=== PATIENT | male | born 1990 | race Hispanic/Latino ===

== ENCOUNTER 2018-07-24 11:42 | Inpatient (IN) | payer SELFPAY ==
[2018-07-24 13:15] LABS: Absolute Lymphocytes (CBC) 1.9 K/uL (0.7-4.9); Absolute Monocytes 1.2 K/uL (0.1-1.3); Absolute Neutrophil 12.5 K/uL (1.8-8.0); Basophils % 0.4 % (0-1.3); Eosinophils % 1.3 % (0-4.4); Hematocrit 41.1 % (39.6-49.0); Lymphocytes % 11.8 % (15.3-44.8); MCH 30.3 pg (27.0-35.0); MCV 86.9 fL (80-100); MPV 8.9 fL (7.6-11.3); Monocytes % 7.7 % (3.3-12.3); RBC Red Blood Cell Count 4.73 M/uL (4.33-5.43)
[2018-07-24] MEDS ORDERED: NA CHLORIDE 0.9% 1,000 ML ONE (13:18)
[2018-07-24 13:37] LABS: ALT/SGPT 46 U/L (12-78); AST/SGOT 21 U/L (15-37); Albumin 3.7 g/dL (3.4-5.0); Alkaline Phosphatase 104 U/L (45-117); Amylase Level 31 U/L (25-115); BUN Blood Urea Nitrogen 9 mg/dL (7-18); Bicarbonate 28 mmol/L (21-32); Bilirubin Direct 0.1 mg/dL (0-0.2); Bilirubin Total 0.5 mg/dL (0.2-1.0); Glucose Level 95 mg/dL (74-106); Lipase 56 U/L (73-393); Potassium 3.8 mmol/L (3.5-5.1); Protein, Total 9.4 g/dL (6.4-8.2); Sodium Level 139 mmol/L (136-145)
--- NOTE | 2018-07-24 14:18 | RAD REPORT ---
EXAM DESCRIPTION: CT - Abdomen Pelvis W Contrast - 07/24/2018 1:53 pm CLINICAL HISTORY: Abdominal pain lower abdominal pain COMPARISON: 2014 TECHNIQUE: Computed axial tomography of the abdomen pelvis was obtained. 100 cc Isovue-300 was admin istered intravenously. Oral contrast was not requested which limits evaluation of bowel. All CT scans are performed using dose optimization technique as appropriate and may include automated exposure control or mA/KV adjustment according to patient size. FINDINGS: The liver has a diminished attenuation consistent with fatty infiltration. Spleen, pancreas, adrenal and kidneys appear unremarkable. An 11 centimeter segment of the sigmoid colon is narrowed. The ill-defined fluid is present within th e sigmoid mesocolon with increased density measuring 7 x 2 centimeters. Small amount of ascites is pr esent within the cul-de-sac. Pneumoperitoneum is not present. IMPRESSION: 11 centimeter area of narrowing involving the sigmoid colon may represent a marked colit is or diverticulitis. Neoplasm is another consideration but probably is less likely. Ill-defined flui d within the mesocolon which has increased density may represent blood. Pneumoperitoneum is not noted .
[2018-07-24] MEDS ORDERED: ONDANSETRON 4 MG/2 ML VIAL ONE (14:20)
[2018-07-24] MEDS ORDERED: MORPHINE 4 MG/ML SYR ONE ×2 (14:20→15:42)
--- NOTE | 2018-07-24 14:41 | ER ---
Nurse's Notes [facility] Name: Eric Greer Age: 28 yrs Sex: Male : 1990 Arrival Date: 07/24/2018 Time: 11:45 Bed 25 Private MD: None, None Diagnosis: Diverticulitis of intestine, part unspecified, without perforation or abscess without bleeding Presentation: 07/24 11:59 Presenting complaint: Patient states: Lower quadrant pain for 1 week, "feels like my aj diverticulitis". Denies blood in stool. Transition of care: patient was not received from another setting of care. Onset of symptoms was July 17, 2018. Risk Assessment: Do you want to hurt yourself or someone else? Patient reports no desire to harm self or others. Initial Sepsis Screen: Does the patient meet any 2 criteria? No. Patient's initial sepsis screen is negative. Does the patient have a suspected source of infection? No. Patient's initial sepsis screen is negative. Care prior to arrival: None. 11:59 Method Of Arrival: Ambulatory 11:59 Acuity: ANNAMARIE 3 aj Triage Assessment: 12:02 General: Appears in no apparent distress. comfortable, Behavior is calm, cooperative, aj appropriate for age. Pain: Complains of pain in left lower quadrant. Neuro: Level of Consciousness is awake, alert, obeys commands, Oriented to person, place, time, situation, Appropriate for age. Respiratory: Airway is patent Respiratory effort is even, unlabored, Respiratory pattern is regular, symmetrical. GI: Abdomen is flat, non-distended, Reports lower abdominal pain. Derm: Skin is intact, is healthy with good turgor, Skin is pink, warm \\T\\ dry. normal. Historical: - Allergies: 12:02 No Known Allergies; aj - Home Meds: 12:02 None [Active]; aj - PMHx: 12:02 Diverticulitis; aj - PSHx: 12:02 None; aj - Immunization history:: Adult Immunizations up to date. - Social history:: Smoking status: Patient/guardian denies using tobacco. - Ebola Screening: : Patient negative for fever greater than or equal to 101.5 degrees Fahrenheit, and additional compatible Ebola Virus Disease symptoms Patient denies exposure to infectious person Patient denies travel to an Ebola-affected area in the 21 days before illness onset No symptoms or risks identified at this time. Screenin:09 Abuse screen: Denies threats or abuse. Nutritional screening: No deficits noted. la1 Tuberculosis screening: No symptoms or risk factors identified. Fall Risk None identified. Assessment: 13:07 General: Appears in no apparent distress. Behavior is calm, cooperative. Pain: la1 Complains of pain in left lower quadrant. Neuro: Level of Consciousness is awake, alert, obeys commands, Oriented to person, place, time, situation. Cardiovascular: Capillary refill < 3 seconds Patient's skin is warm and dry. Respiratory: Airway is patent Respiratory effort is even, unlabored, Respiratory pattern is regular, symmetrical. GI: Abdomen is round non-distended, Bowel sounds present X 4 quads. Abd is soft X 4 quads Abdomen is tender to palpation in left upper quadrant and left lower quadrant Reports constipation, diarrhea, nausea, vomiting, since last week. : No signs and/or symptoms were reported regarding the genitourinary system. 14:21 Reassessment: Patient appears in no apparent distress at this time. No changes from la1 previously documented assessment. Patient and/or family updated on plan of care and expected duration. Pain level reassessed. Vital Signs: 12:02 BP 135 / 85; Pulse 72; Resp 16; Temp 97.0; Pulse Ox 100% on R/A; Weight 77.11 kg; aj Height 5 ft. 11 in. (180.34 cm); 14:25 BP 136 / 90 RA Supine (auto/reg); Pulse 72; Resp 19 S; Temp 97.7(O); Pulse Ox 99% on jp3 R/A; Pain 4/10; 14:54 BP 130 / 95; Pulse 64; Resp 16; Pulse Ox 98% on R/A; la1 15:32 BP 135 / 80 LA Sitting (auto/reg); Pulse 78; Resp 19 S; Pulse Ox 98% on R/A; Pain 4/10; jp3 12:02 Body Mass Index 23.71 (77.11 kg, 180.34 cm) aj ED Course: 11:45 Patient arrived in ED. sb2 11:45 None, None is Private Physician. sb2 12:02 Triage completed. aj 12:02 Arm band placed on left wrist. Patient placed in waiting room, Patient notified of wait aj time. 12:51 Graciela Doss FNP-C is [facility]. kb 12:51 Jairon Scott MD is Attending Physician. kb 12:55 Stevie Carr RN is Primary Nurse. la1 13:00 Initial lab(s) drawn, by me, sent to lab. Inserted saline lock: 22 gauge in left jp3 antecubital area, using aseptic technique. Blood collected. 13:08 Amylase, Serum Sent. jp3 13:08 Basic Metabolic Panel Sent. jp3 13:08 CBC with Diff Sent. jp3 13:08 Hepatic Function Sent. jp3 13:08 Lipase Sent. jp3 13:09 Bed in low position. Call light in reach. la1 13:[address] mw3 13:53 CT Abd/Pelvis - W/Contrast In Process Unspecified. EDMS 14:29 Warm blanket given. Pillow given. jp3 14:40 Estefani Soliman MD is Hospitalizing Provider. kb 16:41 No provider procedures requiring assistance completed. Patient admitted, IV remains in la1 place. Administered Medications: 13:17 Drug: NS 0.9% 1000 ml Route: IV; Rate: 1000 ml; Site: left antecubital; la1 14:55 Follow up: IV Status: Completed infusion la1 14:20 Drug: morphine 4 mg Route: IVP; Site: left antecubital; la1 14:55 Follow up: Response: No adverse reaction; Pain is decreased la1 14:20 Drug: Zofran 4 mg Route: IVP; Site: left antecubital; la1 14:55 Follow up: Response: No adverse reaction la1 14:53 Drug: Flagyl 500 mg Volume: 100 ml; Route: IVPB; Rate: 200 ml/hr; Infused Over: 30 la1 mins; Site: left antecubital; 15:53 Follow up: IV Status: Completed infusion la1 15:10 Drug: Cipro 400 mg Volume: 200 ml; Route: IVPB; Infused Over: 60 mins; Site: left la1 antecubital; 15:54 Follow up: IV Status: Infusion continued upon admission la1 15:54 Drug: morphine 4 mg Route: IVP; Site: left antecubital; la1 15:55 Follow up: Response: No adverse reaction; Pain is decreased la1 Outcome: 14:40 Decision to Hospitalize by Provider. kb 16:41 Admitted to Med/surg accompanied by tech, via wheelchair. la1 16:41 Condition: stable 16:41 Instructed on the need for admit. 16:42 Patient left the ED. la1 Signatures: Dispatcher [employer] EDGraciela Rhodes, KOBE OYSTER PICKER-Zaynab Hernandez RN Stevie Chavis RN RN la1 Tiff Lanier 2 Charisma Eason mw3 Efrain Trinidad jp3
--- NOTE | 2018-07-24 14:41 | EDPHYS ---
Physician Documentation [facility] Name: Eric Greer Age: 28 yrs Sex: Male : 1990 Arrival Date: 07/24/2018 Time: 11:45 Bed 25 Private MD: None, None ED Physician Jairon Scott HPI: 07/24 14:37 This 28 yrs old Male presents to ER via Ambulatory with complaints of kb Abdominal Pain. 14:37 The patient presents with abdominal pain in the left upper quadrant, in the left lower kb quadrant. Onset: The symptoms/episode began/occurred 1 week(s) ago. The symptoms do not radiate. Associated signs and symptoms: Pertinent positives: constipation. The symptoms are described as constant. Modifying factors: The symptoms are alleviated by nothing, the symptoms are aggravated by nothing. Severity of pain: At its worst the pain was moderate in the emergency department the pain is unchanged. The patient has experienced a previous episode. The patient has not recently seen a physician. Historical: - Allergies: 12:02 No Known Allergies; aj - Home Meds: 12:02 None [Active]; aj - PMHx: 12:02 Diverticulitis; aj - PSHx: 12:02 None; aj - Immunization history:: Adult Immunizations up to date. - Social history:: Smoking status: Patient/guardian denies using tobacco. - Ebola Screening: : Patient negative for fever greater than or equal to 101.5 degrees Fahrenheit, and additional compatible Ebola Virus Disease symptoms Patient denies exposure to infectious person Patient denies travel to an Ebola-affected area in the 21 days before illness onset No symptoms or risks identified at this time. ROS: 14:35 Constitutional: Negative for fever, chills, and weight loss, Cardiovascular: Negative kb for chest pain, palpitations, and edema, Respiratory: Negative for shortness of breath, cough, wheezing, and pleuritic chest pain, Back: Negative for injury and pain, : Negative for injury, bleeding, discharge, and swelling, MS/Extremity: Negative for injury and deformity, Skin: Negative for injury, rash, and discoloration, Neuro: Negative for headache, weakness, numbness, tingling, and seizure. 14:35 Abdomen/GI: Positive for abdominal pain, constipation, Negative for nausea, vomiting, and diarrhea. Exam: 14:34 Constitutional: This is a well developed, well nourished patient who is awake, alert, kb and in no acute distress. Head/Face: Normocephalic, atraumatic. Chest/axilla: Normal chest wall appearance and motion. Nontender with no deformity. No lesions are appreciated. Cardiovascular: Regular rate and rhythm with a normal S1 and S2. No gallops, murmurs, or rubs. Normal PMI, no JVD. No pulse deficits. Respiratory: Lungs have equal breath sounds bilaterally, clear to auscultation and percussion. No rales, rhonchi or wheezes noted. No increased work of breathing, no retractions or nasal flaring. Skin: Warm, dry with normal turgor. Normal color with no rashes, no lesions, and no evidence of cellulitis. MS/ Extremity: Pulses equal, no cyanosis. Neurovascular intact. Full, normal range of motion. Neuro: Awake and alert, GCS 15, oriented to person, place, time, and situation. Cranial nerves II-XII grossly intact. Motor strength 5/5 in all extremities. Sensory grossly intact. Cerebellar exam normal. Normal gait. 14:34 Abdomen/GI: Inspection: abdomen appears normal, Bowel sounds: normal, in all quadrants, Palpation: soft, in all quadrants, nontender, in the right upper quadrant and right lower quadrant, mild abdominal tenderness, in the left upper quadrant, moderate abdominal tenderness, in the left lower quadrant. Vital Signs: 12:02 BP 135 / 85; Pulse 72; Resp 16; Temp 97.0; Pulse Ox 100% on R/A; Weight 77.11 kg; aj Height 5 ft. 11 in. (180.34 cm); 14:25 BP 136 / 90 RA Supine (auto/reg); Pulse 72; Resp 19 S; Temp 97.7(O); Pulse Ox 99% on jp3 R/A; Pain 4/10; 14:54 BP 130 / 95; Pulse 64; Resp 16; Pulse Ox 98% on R/A; la1 15:32 BP 135 / 80 LA Sitting (auto/reg); Pulse 78; Resp 19 S; Pulse Ox 98% on R/A; Pain 4/10; jp3 12:02 Body Mass Index 23.71 (77.11 kg, 180.34 cm) aj MDM: 12:52 Patient medically screened. kb 14:37 Data reviewed: vital signs, nurses notes. Data interpreted: Pulse oximetry: on room air kb is 99 %. Interpretation: normal. 14:39 Counseling: I had a detailed discussion with the patient and/or guardian regarding: the kb historical points, exam findings, and any diagnostic results supporting the discharge/admit diagnosis, lab results, radiology results, the need for further work-up and treatment in the hospital. Physician consultation: Estefani Soliman MD was contacted at 14:39, regarding admission, to the medical/surgical unit. patient's condition, and will see patient in ED, shortly. 07/24 12:52 Order name: Amylase, Serum; Complete Time: 13:42 kb 07/24 12:52 Order name: Basic Metabolic Panel; Complete Time: 13:42 kb 07/24 12:52 Order name: CBC with Diff; Complete Time: 13:23 kb 07/24 12:52 Order name: Hepatic Function; Complete Time: 13:42 kb 07/24 12:52 Order name: Lipase; Complete Time: 13:42 kb 07/24 13:08 Order name: CT Abd/Pelvis - W/Contrast; Complete Time: 14:19 kb 07/24 12:52 Order name: IV Saline Lock; Complete Time: 13:08 kb 07/24 15:30 Order name: [facility] EDMS 07/24 12:52 Order name: Labs collected and sent; Complete Time: 13:08 kb Administered Medications: 13:17 Drug: NS 0.9% 1000 ml Route: IV; Rate: 1000 ml; Site: left antecubital; la1 14:55 Follow up: IV Status: Completed infusion la1 14:20 Drug: morphine 4 mg Route: IVP; Site: left antecubital; la1 14:55 Follow up: Response: No adverse reaction; Pain is decreased la1 14:20 Drug: Zofran 4 mg Route: IVP; Site: left antecubital; la1 14:55 Follow up: Response: No adverse reaction la1 14:53 Drug: Flagyl 500 mg Volume: 100 ml; Route: IVPB; Rate: 200 ml/hr; Infused Over: 30 la1 mins; Site: left antecubital; 15:53 Follow up: IV Status: Completed infusion la1 15:10 Drug: Cipro 400 mg Volume: 200 ml; Route: IVPB; Infused Over: 60 mins; Site: left la1 antecubital; 15:54 Follow up: IV Status: Infusion continued upon admission la1 15:54 Drug: morphine 4 mg Route: IVP; Site: left antecubital; la1 15:55 Follow up: Response: No adverse reaction; Pain is decreased la1 Disposition: 18:16 Co-signature as Attending Physician, Jairon Scott MD I agree with the assessment and kdr plan of care. Disposition: 07/24/18 14:40 Hospitalization ordered by Estefani Soliman for Inpatient Admission. Preliminary diagnosis is Diverticulitis of intestine, part unspecified, without perforation or abscess without bleeding. - Bed requested for Telemetry/MedSurg (Inpatient). - Status is Inpatient Admission. la1 - Condition is Stable. - Problem is new. - Symptoms are unchanged. UTI on Admission? No Signatures: Dispatcher [employer] EDMS Graciela Doss, HAO-[employer] ENGINEER-Harmanb Zaynab Acevedo RN Jairon Dubon MD MD [facility] Stevie Carr RN RN [facility] Nicky Gunter Corrections: (The following items were deleted from the chart) 15:42 14:40 Hospitalization Ordered by Estefani Soliman MD for Inpatient Admission. Preliminary eb diagnosis is Diverticulitis of intestine, part unspecified, without perforation or abscess without bleeding. Bed requested for Telemetry/MedSurg (Inpatient). Status is Inpatient Admission. Condition is Stable. Problem is new. Symptoms are unchanged. UTI on Admission? No. kb 16:42 15:42 07/24/2018 14:40 Hospitalization Ordered by Estefani Soliman MD for Inpatient la1 Admission. Preliminary diagnosis is Diverticulitis of intestine, part unspecified, without perforation or abscess without bleeding. Bed requested for Telemetry/MedSurg (Inpatient). Status is Inpatient Admission. Condition is Stable. Problem is new. Symptoms are unchanged. UTI on Admission? No. eb
[2018-07-24] MEDS ORDERED: METRONIDAZOLE 500mg IVPB 500 MG/100 ML BAG IV ONE (14:54)
[2018-07-24] MEDS ORDERED: CIPROFLOXACIN 400mg IV 400 MG/200 ML BAG IV ONE (14:54)
[2018-07-24] MEDS ORDERED: ACETAMINOPHEN 500 MG TAB PO PRN (15:26)
[2018-07-24] MEDS ORDERED: ONDANSETRON 4 MG/2 ML VIAL IV PRN (15:26)
[2018-07-24] MEDS: METRONIDAZOLE 500mg IVPB 500 MG/100 ML BAG IV SCH (17:00)
--- NOTE | 2018-07-24 17:07 | P.HP ---
Certification for Inpatient Patient admitted to: Observation With expected LOS: <2 Midnights Patient will require the following post-hospital care: None Practitioner: I am a practitioner with admitting privileges, knowledge of patient current condition, hospital course, and medical plan of care. Services: Services provided to patient in accordance with Admission requirements found in Title 42 Section 412.3 of the Code of Federal Regulations Patient History Date of Service: 07/24/18 Reason for admission: Abdominal pain History of Present Illness: 28-year-old male with significant past medical history of recurrent diverticulitis who presented to the ED complaining of having some abdominal pain that has been going on for about 1 week. Patient states that his abdominal pain has been getting worse and thus decided to come to the ER. Patient stated that he felt like his diverticulitis was acting up and needed to get IV antibiotics. Patient has been nauseous as well. Denies having any fever chills, vomiting chest pain or shortness of breath at this time. -in the ER patient was found to have elevated white count along with CT which was consistent with 11 cm diverticulitis and thus was admitted for further care. Allergies No Known Drug Allergies Allergy (Unverified 03/03/15 01:45) Unknown - Past Medical/Surgical History Has patient received pneumonia vaccine in the past: No Diabetic: No - Family History Mother -: Hypertension Notes: Hydrocephalus- 2017 Father -: Other (see notes) Notes: diverticulitis. Hernia - Social History Smoking Status: Never smoker Alcohol use: Yes CD- Drugs: No Caffeine use: Yes Place of Residence: Home Review of Systems 10-point ROS is otherwise unremarkable Physical Examination - Vital Signs Temperature: 97.7 F Blood Pressure: 135/80 Pulse: 78 Respirations: 19 - Physical Exam General: Alert, In no apparent distress HEENT: Atraumatic, PERRLA, Mucous membr. moist/pink, EOMI, Sclerae nonicteric Neck: Supple, 2+ carotid pulse no bruit, No LAD, Without JVD or thyroid abnormality Respiratory: Clear to auscultation bilaterally, Normal air movement Cardiovascular: Regular rate/rhythm, Normal S1 S2 Gastrointestinal: Normal bowel sounds, Tenderness (Left upper and lower quadrant tenderness noted), Rebound Musculoskeletal: No tenderness Integumentary: No rashes Neurological: Normal gait, Normal speech, Normal strength at 5/5 x4 extr, Normal tone, Normal affect Lymphatics: No axilla or inguinal lymphadenopathy - Studies Laboratory Data (last 24 hrs) 07/24/18 13:00: WBC 15.9 H, Hgb 14.3, Hct 41.1, Plt Count 394 07/24/18 13:00: Sodium 139, Potassium 3.8, BUN 9, Creatinine 0.90, Glucose 95, Total Bilirubin 0.5, AST 21, ALT 46, Alkaline Phosphatase 104, Amylase 31, Lipase 56 L Assessment and Plan - Problems (Diagnosis) (1) Diverticulitis Current Visit: Yes Status: Acute Plan: Acute abdominal pain with CT with diverticulitis -NPO at this time. IV fluids. -IV Cipro and Flagyl -patient with recurrent diverticulitis. -If no improvement will get surgery consult at this time. -if there is improvement patient can be discharged home in 24-48 hr and have followup appointment with GI outpatient in 6 weeks for a followup colonoscopy - Plan Patient will be admitted to medical-surgical floor for IV antibiotics and IV fluids at this time. Will keep him NPO. If there is resolution of his symptoms and anticipate discharge in 24-48 hr. However patient does not have any resolution of his symptoms due to it being recurrent diverticulitis surgical consultation may be considered at that time. Discharge Plan: Home Plan to discharge in: 48 Hours - Advance Directives Does patient have a Living Will: No Does patient have a Durable POA for Healthcare: No - Code Status/Comfort Care Code Status Assessed: Yes Critical Care: No
[2018-07-24] MEDS: NA CHLORIDE 0.9% 1,000 ML IV SCH ×2 (18:02→21:01)
[2018-07-24 18:56] LABS: Urine Appearance CLEAR; Urine Bilirubin NEGATIVE (NEG); Urine Blood NEGATIVE (NEG); Urine Color YELLOW; Urine Glucose NEGATIVE (NEG); Urine Protein NEGATIVE (NEG); Urine Specific Gravity >=1.030 (1.005-1.030); Urine Urobilinogen 0.2 mg/dL (0.2-1.0); Urine pH 6.5 (5.0-7.0)
[2018-07-24 19:04] LABS: Urine Microscopic Reflex NO UMIC
[2018-07-24] MEDS: CIPROFLOXACIN 400mg IV 400 MG/200 ML BAG IV SCH ×2 (21:00→22:23)
[2018-07-24] MEDS: KETOROLAC 30 MG/ML INJ IV PRN (21:02)
[2018-07-24] MEDS ORDERED: MORPHINE 2 MG/ML SYR IV ONE (23:31)
[2018-07-25] MEDS: METRONIDAZOLE 500mg IVPB 500 MG/100 ML BAG IV SCH ×3 (00:14→16:21)
[2018-07-25] MEDS: KETOROLAC 30 MG/ML INJ IV PRN ×2 (05:01→11:16)
[2018-07-25 06:11] LABS: Absolute Lymphocytes (CBC) 1.1 K/uL (0.7-4.9); Absolute Monocytes 1.3 K/uL (0.1-1.3); Absolute Neutrophil 12.8 K/uL (1.8-8.0); Basophils % 0.2 % (0-1.3); Eosinophils % 1.5 % (0-4.4); Hematocrit 35.6 % (39.6-49.0); Lymphocytes % 7.3 % (15.3-44.8); MCH 30.3 pg (27.0-35.0); MCV 87.5 fL (80-100); MPV 9.3 fL (7.6-11.3); Monocytes % 8.4 % (3.3-12.3); RBC Red Blood Cell Count 4.07 M/uL (4.33-5.43)
[2018-07-25 06:24] LABS: ALT/SGPT 34 U/L (12-78); AST/SGOT 13 U/L (15-37); Albumin 2.9 g/dL (3.4-5.0); Alkaline Phosphatase 78 U/L (45-117); BUN Blood Urea Nitrogen 5 mg/dL (7-18); Bicarbonate 23 mmol/L (21-32); Bilirubin Total 0.5 mg/dL (0.2-1.0); Glucose Level 97 mg/dL (74-106); Phosphorus 3.5 mg/dL (2.5-4.9); Potassium 3.6 mmol/L (3.5-5.1); Protein, Total 7.4 g/dL (6.4-8.2); Sodium Level 139 mmol/L (136-145)
[2018-07-25] MEDS ORDERED: POTASSIUM CL SA 10 MEQ TAB PO ONE (06:31)
[2018-07-25] MEDS: CIPROFLOXACIN 400mg IV 400 MG/200 ML BAG IV SCH ×2 (09:02→20:17)
[2018-07-25] MEDS: MORPHINE 4 MG/ML SYR IV PRN ×2 (12:38→16:17)
--- NOTE | 2018-07-25 13:50 | P.PN ---
Subjective Date of Service: 07/25/18 Chief Complaint: Abdominal pain still ahs significant lower abd pain, and some nausea. requiring iv pain meds Physical Examination - Vital Signs Temperature: 97 F Blood Pressure: 101/56 Pulse: 69 Respirations: 18 Pulse Ox (%): 97 - Physical Exam General: Alert, In no apparent distress HEENT: Atraumatic, PERRLA, EOMI Neck: Supple, JVD not distended Respiratory: Clear to auscultation bilaterally, Normal air movement Cardiovascular: Regular rate/rhythm, Normal S1 S2 Gastrointestinal: Normal bowel sounds, Tenderness Musculoskeletal: No tenderness Integumentary: No rashes Neurological: Normal speech, Normal tone, Normal affect Lymphatics: No axilla or inguinal lymphadenopathy - Studies Medications List Reviewed: Yes Assessment And Plan - Current Problems (Diagnosis) (1) Diverticulitis Current Visit: Yes Status: Acute - Plan --Clear liquid diet --IVF --IV Cipro and Flagyl --Moprphine IV --May repeat CT scan if not improvong tomorrow
[2018-07-25] MEDS: NA CHLORIDE 0.9% 1,000 ML IV SCH ×2 (16:13→22:00)
[2018-07-25] MEDS: ONDANSETRON 4 MG/2 ML VIAL IV PRN (20:20)
[2018-07-25] MEDS: PROMETHAZINE 25 MG/ML VIAL IV PRN (21:17)
[2018-07-26] MEDS: ONDANSETRON 4 MG/2 ML VIAL IV PRN
[2018-07-26] MEDS: METRONIDAZOLE 500mg IVPB 500 MG/100 ML BAG IV SCH ×2 (00:01→09:14)
[2018-07-26] MEDS: NA CHLORIDE 0.9% 1,000 ML IV SCH ×3 (03:47→17:49)
[2018-07-26] MEDS: PROMETHAZINE 25 MG/ML VIAL IV PRN ×2 (03:48→14:01)
[2018-07-26] MEDS: KETOROLAC 30 MG/ML INJ IV PRN ×2 (06:18)
[2018-07-26 06:56] LABS: ALT/SGPT 29 U/L (12-78); AST/SGOT 13 U/L (15-37); Albumin 2.7 g/dL (3.4-5.0); Alkaline Phosphatase 76 U/L (45-117); BUN Blood Urea Nitrogen 4 mg/dL (7-18); Bicarbonate 24 mmol/L (21-32); Bilirubin Total 0.4 mg/dL (0.2-1.0); Glucose Level 107 mg/dL (74-106); Phosphorus 3.5 mg/dL (2.5-4.9); Potassium 3.7 mmol/L (3.5-5.1); Protein, Total 7.3 g/dL (6.4-8.2); Sodium Level 139 mmol/L (136-145)
[2018-07-26 07:06] LABS: Absolute Lymphocytes (CBC) 1.2 K/uL (0.7-4.9); Absolute Monocytes 0.8 K/uL (0.1-1.3); Absolute Neutrophil 11.2 K/uL (1.8-8.0); Basophils % 0.2 % (0-1.3); Eosinophils % 0.2 % (0-4.4); Hematocrit 37.8 % (39.6-49.0); Lymphocytes % 9.2 % (15.3-44.8); MCH 30.2 pg (27.0-35.0); MCV 87.1 fL (80-100); MPV 9.6 fL (7.6-11.3); Monocytes % 6.3 % (3.3-12.3); RBC Red Blood Cell Count 4.34 M/uL (4.33-5.43)
[2018-07-26] MEDS ORDERED: POTASSIUM CL SA 10 MEQ TAB PO ONE (09:00)
[2018-07-26] MEDS: CIPROFLOXACIN 400mg IV 400 MG/200 ML BAG IV SCH (09:14)
[2018-07-26] MEDS: metroNIDAZOLE 500 MG TABLET PO SCH ×2 (12:48→17:31)
[2018-07-26] MEDS ORDERED: levoFLOXacin 500 MG TAB PO SCH (15:00)
[2018-07-26] MEDS ORDERED: PROMETHAZINE 25 MG/ML VIAL IV PRN ×2 (16:52→17:01)
--- NOTE | 2018-07-26 19:00 | P.PN ---
Subjective Date of Service: 07/26/18 Chief Complaint: Abdominal pain doing better less pain Physical Examination - Vital Signs Temperature: 97.9 F Blood Pressure: 120/60 Pulse: 80 Respirations: 18 Pulse Ox (%): 98 - Physical Exam General: Alert, In no apparent distress HEENT: Atraumatic, PERRLA, EOMI Neck: Supple, JVD not distended Respiratory: Clear to auscultation bilaterally, Normal air movement Cardiovascular: Regular rate/rhythm, Normal S1 S2 Gastrointestinal: Normal bowel sounds, No tenderness Musculoskeletal: No tenderness Integumentary: No rashes Neurological: Normal speech, Normal tone, Normal affect Lymphatics: No axilla or inguinal lymphadenopathy - Studies Laboratory Data (last 24 hrs) 07/26/18 05:28: Sodium 139, Potassium 3.7, BUN 4 L, Creatinine 0.70, Glucose 107 H, Phosphorus 3.5, Magnesium 2.0, Total Bilirubin 0.4, AST 13 L, ALT 29, Alkaline Phosphatase 76 07/26/18 05:28: WBC 13.4 H, Hgb 13.1 L, Hct 37.8 L, Plt Count 386 Medications List Reviewed: Yes Assessment And Plan - Current Problems (Diagnosis) (1) Diverticulitis Current Visit: Yes Status: Acute - Plan --full liquid diet --IVF --PO Cipro and Flagyl --Moprphine IV
[2018-07-27] MEDS: NA CHLORIDE 0.9% 1,000 ML IV SCH (00:14)
[2018-07-27 04:11] LABS: Absolute Lymphocytes (CBC) 1.2 K/uL (0.7-4.9); Absolute Neutrophil 11.4 K/uL (1.8-8.0); Basophils % 0.4 % (0-1.3); Eosinophils % 0.5 % (0-4.4); Hematocrit 36.2 % (39.6-49.0); Lymphocytes % 8.7 % (15.3-44.8); MCV 87.3 fL (80-100); Monocytes % 7.1 % (3.3-12.3); RBC Red Blood Cell Count 4.15 M/uL (4.33-5.43)
[2018-07-27 05:00] LABS: ALT/SGPT 25 U/L (12-78); AST/SGOT 12 U/L (15-37); Albumin 2.6 g/dL (3.4-5.0); Alkaline Phosphatase 66 U/L (45-117); BUN Blood Urea Nitrogen 3 mg/dL (7-18); Bicarbonate 23 mmol/L (21-32); Bilirubin Total 0.3 mg/dL (0.2-1.0); Glucose Level 99 mg/dL (74-106); Magnesium 1.7 mg/dL (1.8-2.4); Phosphorus 2.7 mg/dL (2.5-4.9); Potassium 3.8 mmol/L (3.5-5.1); Protein, Total 6.8 g/dL (6.4-8.2); Sodium Level 140 mmol/L (136-145)
[2018-07-27] MEDS ORDERED: METRONIDAZOLE 500mg IVPB 500 MG/100 ML BAG IV SCH (06:00)
[2018-07-27] MEDS ORDERED: MAGNESIUM SULFATE 1 gm IVPB 1 GM/100 ML BAG IV ONE (08:00)
[2018-07-27] MEDS ORDERED: KCL 20 MEQ/100 mL IVPB 20 MEQ/100 ML BAG IV SCH (09:00)
[2018-07-27] MEDS ORDERED: Levofloxacin500mg IV 500 MG/100 ML BAG IV SCH (09:00)
[2018-07-27] MEDS: metroNIDAZOLE 500 MG TABLET PO SCH ×4 (11:47→23:32)
--- NOTE | 2018-07-27 17:48 | P.PN ---
Subjective Date of Service: 07/27/18 Chief Complaint: Abdominal pain doing much better today less pain Physical Examination - Vital Signs Temperature: 97.5 F Blood Pressure: 101/57 Pulse: 71 Respirations: 18 Pulse Ox (%): 97 - Physical Exam General: Alert, In no apparent distress HEENT: Atraumatic, PERRLA, EOMI Neck: Supple, JVD not distended Respiratory: Clear to auscultation bilaterally, Normal air movement Cardiovascular: Regular rate/rhythm, Normal S1 S2 Gastrointestinal: Normal bowel sounds, No tenderness Musculoskeletal: No tenderness Integumentary: No rashes Neurological: Normal speech, Normal tone, Normal affect Lymphatics: No axilla or inguinal lymphadenopathy - Studies Medications List Reviewed: Yes Assessment And Plan - Current Problems (Diagnosis) (1) Diverticulitis Onset Date: 07/27/18 Current Visit: Yes Status: Acute - Plan --Advance diet --IVF --PO Cipro and Flagyl --DC home tomorrow if tolerates meds and diet
[2018-07-28 04:31] LABS: Absolute Lymphocytes (CBC) 2.2 K/uL (0.7-4.9); Absolute Monocytes 0.7 K/uL (0.1-1.3); Absolute Neutrophil 6.5 K/uL (1.8-8.0); Basophils % 0.5 % (0-1.3); Hematocrit 38.3 % (39.6-49.0); Lymphocytes % 22.3 % (15.3-44.8); MCH 30.3 pg (27.0-35.0); MCV 86.6 fL (80-100); MPV 8.6 fL (7.6-11.3); Monocytes % 7.4 % (3.3-12.3); RBC Red Blood Cell Count 4.43 M/uL (4.33-5.43)
[2018-07-28 04:48] LABS: ALT/SGPT 26 U/L (12-78); AST/SGOT 21 U/L (15-37); Albumin 2.7 g/dL (3.4-5.0); Alkaline Phosphatase 64 U/L (45-117); BUN Blood Urea Nitrogen 4 mg/dL (7-18); Bicarbonate 26 mmol/L (21-32); Bilirubin Total 0.2 mg/dL (0.2-1.0); Glucose Level 94 mg/dL (74-106); Potassium 3.4 mmol/L (3.5-5.1); Protein, Total 6.9 g/dL (6.4-8.2); Sodium Level 142 mmol/L (136-145)
[2018-07-28] MEDS ORDERED: POTASSIUM 25 MEQ EFFERV TAB PO ONE (05:41)
[2018-07-28 05:42] LABS: Magnesium 1.8 mg/dL (1.8-2.4)
[2018-07-28] MEDS ORDERED: MAGNESIUM SULFATE 1 gm IVPB 1 GM/100 ML BAG IV ONE (05:52)
[2018-07-28] MEDS: metroNIDAZOLE 500 MG TABLET PO SCH ×2 (06:36→12:00)
[2018-07-28] MEDS ORDERED: levoFLOXacin 500 MG TAB PO SCH (09:00)
--- NOTE | 2018-07-28 13:45 | P.DS ---
Admission Date: 07/26/18 Discharge Date: 07/28/18 Disposition: ROUTINE DISCHARGE Discharge Condition: GOOD Reason for Admission: Abdominal pain - Problems (1) Diverticulitis Onset Date: 07/27/18 Status: Acute Brief History of Present Illness: 28-year-old male with significant past medical history of recurrent diverticulitis who presented to the ED complaining of having some abdominal pain that has been going on for about 1 week. Patient states that his abdominal pain has been getting worse and thus decided to come to the ER. Patient stated that he felt like his diverticulitis was acting up and needed to get IV antibiotics. Patient has been nauseous as well. Denies having any fever chills, vomiting chest pain or shortness of breath at this time. -in the ER patient was found to have elevated white count along with CT which was consistent with 11 cm diverticulitis and thus was admitted for further care. Hospital Course: Overall during the hospital stay patient remained stable The patient was initially admitted to the hospital for diverticulitis. Was found to have 11 cm diverticulitis on the CT scan. Was started with NPO diet and IV fluids and pain management. Patient had marked resolution of his symptoms and then was advanced to a full diet here in the hospital. Patient then was switched over to oral medication. C. diff culture was negative. Upon complete resolution of his symptoms. Patient was then discharged home under stable condition. Patient was asked to follow up with GI doctor outpatient in 6 weeks to get a colonoscopy done. Patient demonstrated understanding and was encouraged to eat a high-fiber diet. Vital Signs/Physical Exam: Temp Pulse Resp BP Pulse Ox 97.5 F 77 18 118/65 97 07/28/18 08:00 07/28/18 08:00 07/28/18 08:00 07/28/18 08:00 07/28/18 08:00 General: Alert, In no apparent distress HEENT: Atraumatic, PERRLA, EOMI Neck: Supple, JVD not distended Respiratory: Clear to auscultation bilaterally, Normal air movement Cardiovascular: Regular rate/rhythm, Normal S1 S2 Gastrointestinal: Normal bowel sounds, No tenderness Musculoskeletal: No tenderness Integumentary: No rashes Neurological: Normal speech, Normal tone, Normal affect Lymphatics: No axilla or inguinal lymphadenopathy Laboratory Data at Discharge: WBC 9.8 K/uL (4.3-10.9) D 07/28/18 04:18 Hgb 13.4 g/dL (13.6-17.9) L 07/28/18 04:18 Hct 38.3 % (39.6-49.0) L 07/28/18 04:18 Plt Count 421 K/uL (152-406) H 07/28/18 04:18 Sodium 142 mmol/L (136-145) 07/28/18 04:18 Potassium 3.4 mmol/L (3.5-5.1) L 07/28/18 04:18 BUN 4 mg/dL (7-18) L 07/28/18 04:18 Creatinine 0.70 mg/dL (0.55-1.3) 07/28/18 04:18 Glucose 94 mg/dL (74-106) 07/28/18 04:18 Phosphorus 2.7 mg/dL (2.5-4.9) 07/27/18 03:40 Magnesium 1.8 mg/dL (1.8-2.4) 07/28/18 04:18 Total Bilirubin 0.2 mg/dL (0.2-1.0) 07/28/18 04:18 AST 21 U/L (15-37) 07/28/18 04:18 ALT 26 U/L (12-78) 07/28/18 04:18 Alkaline Phosphatase 64 U/L (45-117) 07/28/18 04:18 Amylase 31 U/L (25-115) 07/24/18 13:00 Lipase 56 U/L (73-393) L 07/24/18 13:00 Home Medications: Ciprofloxacin HCl [Cipro 500 MG Tablet] 500 mg PO DAILY 10 Days #10 tab metroNIDAZOLE [Flagyl] 500 mg PO Q8H #30 tablet 07/28/18 New Medications: Ciprofloxacin HCl [Cipro 500 MG Tablet] 500 mg PO DAILY 10 Days #10 tab metroNIDAZOLE [Flagyl] 500 mg PO Q8H #30 tablet Patient Discharge Instructions: Please F.u with PCP and GI in 1 to 2 days post discharge. New medication. Ciprofloxacin 500mg Daily for 10 day s. Flagyl 500mg q8h for 10 days Diet: Regular Activity: Ad homero Followup: Randy Bernal MD [ACTIVE - CAN ADMIT] - (call to schedule appointment)
== END 2018-07-28 12:17 | disposition home or self-care (01) | DRG 392 ==
LOC: ER 11:42 → ERHOLD 15:27 → 4TH 16:18 → OBSVTOIN 07-26 13:20
PROVIDERS: ADMIT Family Medicine; ATTEND Family Medicine
DX: K57.92 Diverticulitis of intestine, part unspecified, without perforation or abscess without bleeding (principal)
CPT/HCPCS: 36415; 74177; 80048; 80053; 80076; 81003; 82150; 83690; 83735; 84100; 85025; 96361; 96365; 96375; 99285; G0378; J0744; J2270; J2405; J2550; J3475; J7030; Q9967

== ENCOUNTER 2020-08-02 22:07 | Emergency (ER) | payer SELFPAY ==
[2020-08-02 23:23] LABS: Absolute Lymphocytes (CBC) 1.1 K/uL (0.7-4.9); Basophils % 0.4 % (0-1.3); Hematocrit 43.6 % (39.6-49.0); Lymphocytes % 10.9 % (15.3-44.8); MPV 9.1 fL (7.6-11.3); RBC Red Blood Cell Count 4.99 M/uL (4.33-5.43)
[2020-08-02 23:36] LABS: ALT/SGPT 67 U/L (12-78); AST/SGOT 21 U/L (15-37); Albumin 4.2 g/dL (3.4-5.0); Alkaline Phosphatase 75 U/L (45-117); BUN Blood Urea Nitrogen 7 mg/dL (7-18); Bicarbonate 23 mmol/L (21-32); Bilirubin Direct 0.2 mg/dL (0-0.2); Bilirubin Total 0.8 mg/dL (0.2-1.0); Glucose Level 124 mg/dL (74-106); Lipase 48 U/L (73-393); Potassium 4.2 mmol/L (3.5-5.1); Protein, Total 8.6 g/dL (6.4-8.2); Sodium Level 139 mmol/L (136-145)
[2020-08-02] MEDS ORDERED: MORPHINE 4 MG/ML SYR ONE (23:55)
[2020-08-02] MEDS ORDERED: ONDANSETRON 4 MG/2 ML VIAL ONE (23:55)
--- NOTE | 2020-08-03 01:00 | EDPHYS ---
Physician Documentation [facility] Name: Eric Greer Age: 30 yrs Sex: Male : 1990 Arrival Date: 08/02/2020 Time: 22:09 Bed 5 Private MD: ED Physician Alex Brcue HPI: 08/03 01:54 This 30 yrs old Male presents to ER via Ambulatory with complaints of tw4 Abdominal Pain, Constipation. 01:54 The patient presents with abdominal pain that is diffuse. Onset: The symptoms/episode tw4 began/occurred today. The symptoms do not radiate. Associated signs and symptoms: none. The symptoms are described as crampy, dull. Modifying factors: The symptoms are alleviated by nothing, the symptoms are aggravated by nothing. The patient has not experienced similar symptoms in the past. Historical: - Allergies: 08/02 22:25 No Known Allergies; bb - Home Meds: 22:25 None [Active]; bb - PMHx: 22:25 Diverticulitis; bb - PSHx: 22:25 None; bb - Immunization history:: Adult Immunizations up to date. - Social history:: Smoking status: Patient/guardian denies using tobacco, but has a distant history of tobacco abuse, Patient uses alcohol, occasionally. Patient/guardian denies using street drugs. ROS: 08/03 01:54 Constitutional: Negative for fever, chills, and weight loss, Eyes: Negative for injury, tw4 pain, redness, and discharge, Cardiovascular: Negative for chest pain, palpitations, and edema, Respiratory: Negative for shortness of breath, cough, wheezing, and pleuritic chest pain, Back: Negative for injury and pain, MS/Extremity: Negative for injury and deformity, Skin: Negative for injury, rash, and discoloration. Abdomen/GI: Positive for abdominal pain, Negative for nausea and vomiting, nausea, vomiting, and diarrhea, nausea, vomiting, constipation. Exam: 01:54 Constitutional: This is a well developed, well nourished patient who is awake, alert, tw4 and in no acute distress. Head/Face: Normocephalic, atraumatic. Chest/axilla: Normal chest wall appearance and motion. Nontender with no deformity. No lesions are appreciated. Cardiovascular: Regular rate and rhythm with a normal S1 and S2. No gallops, murmurs, or rubs. Normal PMI, no JVD. No pulse deficits. Respiratory: Lungs have equal breath sounds bilaterally, clear to auscultation and percussion. No rales, rhonchi or wheezes noted. No increased work of breathing, no retractions or nasal flaring. MS/ Extremity: Pulses equal, no cyanosis. Neurovascular intact. Full, normal range of motion. Neuro: Awake and alert, GCS 15, oriented to person, place, time, and situation. Cranial nerves II-XII grossly intact. Motor strength 5/5 in all extremities. Sensory grossly intact. Cerebellar exam normal. Normal gait. 01:54 Abdomen/GI: Inspection: abdomen appears normal, Bowel sounds: normal, Palpation: moderate abdominal tenderness. Vital Signs: 08/02 22:23 BP 138 / 103; Pulse 102; Resp 16 S; Temp 98.7(O); Pulse Ox 98% on R/A; Weight 72.57 kg bb (R); Height 5 ft. 11 in. (180.34 cm) (R); Pain 10/10; 23:14 BP 134 / 93; Pulse 95; Resp 17; Pulse Ox 99% ; rr5 08/03 00:30 BP 124 / 77; Pulse 85; Resp 17; Pulse Ox 99% ; rr5 01:20 BP 120 / 85; Pulse 90; Resp 16; Pulse Ox 99% ; Pain 5/10; rr5 08/02 22:23 Body Mass Index 22.32 (72.57 kg, 180.34 cm) bb MDM: 08/02 23:17 Patient medically screened. tw4 08/03 01:56 Differential diagnosis: Cholelithiasis, diverticulitis, GI Bleed, pancreatitis, Peptic tw4 Ulcer Disease, Perf. Duodenal Ulcer, Perf. Gastric Ulcer. Data reviewed: vital signs, nurses notes. Data interpreted: Pulse oximetry: Interpretation: normal. Counseling: I had a detailed discussion with the patient and/or guardian regarding: the historical points, exam findings, and any diagnostic results supporting the discharge/admit diagnosis. Medication response: Zofran relieved the patient's nausea. Response to treatment: the patient's symptoms have mildly improved after treatment, and as a result, I will discharge patient. Special discussion: Based on the patient's Hx, exam, and Dx evaluation, there is no indication for emergent surgery or inpatient Tx. It is understood by the patient/guardian that if the Sx's persist or worsen they need to return immediately for re-evaluation. I discussed with the patient/guardian in detail that at this point there is no indication for admission to the hospital. It is understood, however, that if the symptoms persist or worsen the patient needs to return immediately for re-evaluation. 08/02 23:07 Order name: Basic Metabolic Panel; Complete Time: 23:36 [facility] 08/02 23:36 Interpretation: Normal except: GLUC 124. 08/02 23:07 Order name: CBC with Diff; Complete Time: 23:36 [facility] 08/02 23:37 Interpretation: Normal except: LYM% 10.9; RAGHU% 83.1; NEUT A 8.7. [facility] 08/02 22:45 Order name: Abdomen 1 View (KUB) XRAY [facility] 08/02 23:07 Order name: Hepatic Function; Complete Time: 23:36 [facility] 08/02 23:36 Interpretation: Normal except: TP 8.6; GLOB 4.4; A/G 1.0. 08/02 23:07 Order name: Lipase; Complete Time: 23:36 [facility] 08/02 23:37 Interpretation: Normal except: LIP 48. 08/02 23:39 Order name: CT Abd/Pelvis - IV Contrast Only 08/02 23:07 Order name: IV Saline Lock; Complete Time: 23:13 [facility] 08/02 23:07 Order name: Labs collected and sent; Complete Time: 23:14 rr5 Administered Medications: 08/02 23:47 Drug: Zofran (Ondansetron) 4 mg Route: IVP; Site: left antecubital; rr5 08/03 00:30 Follow up: Response: No adverse reaction rr5 08/02 23:49 Drug: morphine 4 mg {Note: rass 0.} Route: IVP; Site: left antecubital; rr5 08/03 00:30 Follow up: Response: No adverse reaction; RASS: Alert and Calm (0) rr5 01:00 Drug: Cipro 500 mg Route: PO; rr5 01:22 Follow up: Response: No adverse reaction rr5 01:00 Drug: Flagyl 500 mg Route: PO; rr5 01:22 Follow up: Response: No adverse reaction rr5 Disposition: 08/03/20 00:59 Discharged to Home. Impression: Diverticular disease of large intestine without perforation or abscess. - Condition is Stable. - Discharge Instructions: Diverticulitis, [id number]. - Prescriptions for Cipro 500 mg Oral Tablet - take 1 tablet by ORAL route every 12 hours for 10 days; 20 tablet. Flagyl 500 mg Oral Tablet - take 1 tablet by ORAL route every 6 hours for 10 days; 40 tablet. Ibuprofen 800 mg Oral Tablet - take 1 tablet by ORAL route every 12 hours As needed take with food; 20 tablet. - Medication Reconciliation Form, Thank You Letter, Antibiotic Education, Prescription Opioid Use, Work release form form. - Follow up: Private Physician; When: Upon discharge from the Emergency Department; Reason: Recheck today's complaints, Continuance of care, Re-evaluation by your physician. - Problem is new. - Symptoms have improved. Signatures: Dispatcher [employer] EDKristi Cruz RN RN Alex Huertas MD MD tw4 Jovan Orellana RN RN rr5 Corrections: (The following items were deleted from the chart) 01: 00:59 08/03/2020 00:59 Discharged to Home. Impression: Diverticular disease of large rr5 intestine without perforation or abscess. Condition is Stable. Forms are Medication Reconciliation Form, Thank You Letter, Antibiotic Education, Prescription Opioid Use. Follow up: Private Physician; When: Upon discharge from the Emergency Department; Reason: Recheck today's complaints, Continuance of care, Re-evaluation by your physician. Problem is new. Symptoms have improved. tw4
--- NOTE | 2020-08-03 01:00 | ER ---
Nurse's Notes [facility] Name: Eric Greer Age: 30 yrs Sex: Male : 1990 Arrival Date: 08/02/2020 Time: 22:09 Bed 5 Private MD: Diagnosis: Diverticular disease of large intestine without perforation or abscess Presentation: 08/02 22:23 Chief complaint: Patient states: he is having diffuse abdominal pain x 3 days has bb vomited several times and had one episode of diarrhea earlier today. Coronavirus screen: At this time, the client does not indicate any symptoms associated with coronavirus-19. Ebola Screen: No symptoms or risks identified at this time. Initial Sepsis Screen: Does the patient meet any 2 criteria? No. Patient's initial sepsis screen is negative. Does the patient have a suspected source of infection? No. Patient's initial sepsis screen is negative. Risk Assessment: Do you want to hurt yourself or someone else? Patient reports no desire to harm self or others. Onset of symptoms was July 30, 2020. 22:23 Method Of Arrival: Ambulatory bb 22:23 Acuity: ANNAMARIE 3 bb Triage Assessment: 22:25 General: Appears in no apparent distress. Behavior is calm, cooperative. Pain: bb Complains of pain in abdomen Pain currently is 10 out of 10 on a pain scale. GI: Reports lower abdominal pain, upper abdominal pain, diarrhea, vomiting. Historical: - Allergies: 22:25 No Known Allergies; bb - Home Meds: 22:25 None [Active]; bb - PMHx: 22:25 Diverticulitis; bb - PSHx: 22:25 None; bb - Immunization history:: Adult Immunizations up to date. - Social history:: Smoking status: Patient/guardian denies using tobacco, but has a distant history of tobacco abuse, Patient uses alcohol, occasionally. Patient/guardian denies using street drugs. Screenin:14 Abuse screen: Denies threats or abuse. Denies injuries from another. Nutritional rr5 screening: No deficits noted. Tuberculosis screening: No symptoms or risk factors identified. Fall Risk IV access (20 points). Total Cole Fall Scale indicates No Risk (0-24 pts). Assessment: 22:50 General: Appears in no apparent distress. uncomfortable, Behavior is calm, cooperative, rr5 appropriate for age. 22:50 Pain: Complains of pain in abdomen Pain currently is 7 out of 10 on a pain scale. rr5 Quality of pain is described as aching, Pain began gradually, 2-3 days ago. Is intermittent. Neuro: Level of Consciousness is awake, alert, obeys commands, Oriented to person, place, time, situation. Cardiovascular: Capillary refill < 3 seconds Patient's skin is warm and dry. Respiratory: Airway is patent Respiratory effort is even, unlabored, Respiratory pattern is regular, symmetrical. GI: Abdomen is round non-distended, Bowel sounds present X 4 quads. Abd is soft and non tender Patient currently denies abdominal pain, diarrhea, nausea, vomiting. : No signs and/or symptoms were reported regarding the genitourinary system. EENT: No signs and/or symptoms were reported regarding the EENT system. Derm: Skin is intact, is healthy with good turgor, Skin temperature is warm. Musculoskeletal: Circulation, motion, and sensation intact. Capillary refill < 3 seconds. 23:28 Reassessment: Patient appears in no apparent distress at this time. Patient is alert, rr5 oriented x 3, equal unlabored respirations, skin warm/dry/pink. came back from ay. 08/03 00:15 Reassessment: Patient appears in no apparent distress at this time. awaiting for CT rr5 result Patient states symptoms have improved. 01:19 Reassessment: Patient appears in no apparent distress at this time. Patient is alert, rr5 oriented x 3, equal unlabored respirations, skin warm/dry/pink. discharge instruction given and explained without complaints made. Vital Signs: 08/02 22:23 BP 138 / 103; Pulse 102; Resp 16 S; Temp 98.7(O); Pulse Ox 98% on R/A; Weight 72.57 kg bb (R); Height 5 ft. 11 in. (180.34 cm) (R); Pain 10/10; 23:14 BP 134 / 93; Pulse 95; Resp 17; Pulse Ox 99% ; rr5 08/03 00:30 BP 124 / 77; Pulse 85; Resp 17; Pulse Ox 99% ; rr5 01:20 BP 120 / 85; Pulse 90; Resp 16; Pulse Ox 99% ; Pain 5/10; rr5 08/02 22:23 Body Mass Index 22.32 (72.57 kg, 180.34 cm) ED Course: 08/02 22:09 Patient arrived in ED. cl3 22:24 Triage completed. bb 22:25 Arm band placed on Patient placed in waiting room, Patient notified of wait time. bb 22:44 Jovan Orellana, RN is Primary Nurse. rr5 22:44 Alex Bruce MD is Attending Physician. tw4 23:14 Patient has correct armband on for positive identification. Bed in low position. Call rr5 light in reach. Pulse ox on. NIBP on. 23:14 Inserted saline lock: 20 gauge in left antecubital area, using aseptic technique. Blood rr5 collected. 23:30 Abdomen 1 View (KUB) XRAY In Process Unspecified. EDMS 08/03 00:13 CT Abd/Pelvis - IV Contrast Only In Process Unspecified. EDMS 01:21 No provider procedures requiring assistance completed. IV discontinued, intact, rr5 bleeding controlled, No redness/swelling at site. Pressure dressing applied. Administered Medications: 08/02 23:47 Drug: Zofran (Ondansetron) 4 mg Route: IVP; Site: left antecubital; rr5 08/03 00:30 Follow up: Response: No adverse reaction rr5 08/02 23:49 Drug: morphine 4 mg {Note: rass 0.} Route: IVP; Site: left antecubital; rr5 08/03 00:30 Follow up: Response: No adverse reaction; RASS: Alert and Calm (0) rr5 01:00 Drug: Cipro 500 mg Route: PO; rr5 01:22 Follow up: Response: No adverse reaction rr5 01:00 Drug: Flagyl 500 mg Route: PO; rr5 01:22 Follow up: Response: No adverse reaction rr5 Outcome: 00:59 Discharge ordered by . tw4 01:21 Discharged to home ambulatory. rr5 01:21 Condition: stable 01:21 Discharge instructions given to patient, Instructed on discharge instructions, follow up and referral plans. medication usage, Demonstrated understanding of instructions, follow-up care, medications, Prescriptions given X 3. 01:22 Patient left the ED. rr5 Signatures: Dispatcher [employer] EDKS Kristi Zimmerman RN RN Alex Huertas MD MD tw Jovan Orellana RN RN rr5 Tomasz Jones cl3
[2020-08-03] MEDS ORDERED: CIPROFLOXACIN HCL 500 MG TAB ONE (01:25)
[2020-08-03] MEDS ORDERED: metroNIDAZOLE 500 MG TABLET ONE (01:25)
[2020-08-03 01:41] VITALS: TEMP 98.7
[2020-08-03 01:42] VITALS: O2SAT 99
[2020-08-03 01:45] VITALS: BP 120/85
--- NOTE | 2020-08-03 08:48 | RAD REPORT ---
EXAM DESCRIPTION: RAD - Abdomen 1 View (KUB) - 08/02/2020 11:30 pm CLINICAL HISTORY: ABD PAIN Pain COMPARISON: Abdomen Pelvis W Contrast dated 08/02/2020 FINDINGS: Diffuse distention of the colon with gas is present. No pneumatosis coli seen. No suspicio us calcifications. No significant bony findings. IMPRESSION: Diffuse distention of the colon is seen with gas noted.
--- NOTE | 2020-08-03 11:57 | RAD REPORT ---
EXAM DESCRIPTION: Abdomen Pelvis W Contrast EXAM DESCRIPTION: CT ABDOMEN AND PELVIS WITH CONTRAST CLINICAL HISTORY: Diffuse abdominal pain COMPARISON: None Available. TECHNIQUE: CT of the abdomen and pelvis performed following IV administration of iodinated contras t.. FINDINGS: Lung Bases: Minimal bibasilar dependent atelectasis. Bones: No destructive bone lesions identified. Abdomen: Liver: The liver has normal size and decreased density. No intrahepatic biliary dilatation. Gallbladder: No calcified gallstones. Spleen, Pancreas, and Adrenal Glands: The spleen, pancreas, and adrenal glands are unremarkable. Kidneys: No hydronephrosis or obstructing calculus. Vasculature: The aorta and IVC have normal caliber and position. The portal vein is patent. The pro ximal visceral and renal arteries are patent. Stomach: The stomach and duodenum have normal course. Other: No free intraperitoneal air. No free fluid or lymphadenopathy. Pelvis: Bladder: Urinary bladder is unremarkable. Bowel: Short segment bowel wall thickening with adjacent inflammatory change of the sigmoid colon. Scattered diverticula of the colon. Distention of the colon proximal to the region of inflammation li popeye represents ileus. Appendix: Normal appendix. Pelvis: Prostate is not enlarged. IMPRESSION: 1. Findings compatible with acute uncomplicated diverticulitis of the sigmoid colon. Con tinued gastroenterology follow-up after acute illness to exclude other causes of short segment bowel wall thickening is recommended. 2. Hepatic steatosis. This exam was performed according to our departmental dose-optimization program, which includes autom ated exposure control, adjustment of the mA and/or kV according to patient size and/or use of iterati ve reconstruction technique. Electronically signed by: Young Martin 08/03/2020 12:31 AM CDT Due to temporary technical issues with the PACS/Fluency reporting system, reports are being signed by the in house radiologist without review as a courtesy to ensure prompt reporting. The interpreting r adiologist is fully responsible for the content of the report.
== END 2020-08-03 01:22 | disposition home or self-care (01) ==
LOC: ER 22:07
DX: K57.30 Diverticulosis of large intestine without perforation or abscess without bleeding (principal)
CPT/HCPCS: 36415; 74018; 74177; 80048; 80076; 83690; 85025; 96374; 96375; 99284; J2405; Q9967